=== PATIENT | female | born 1990 ===

== ENCOUNTER 2024-12-31 09:00 | Day surgery (SDC) | payer OTHER ==
[2024-12-25 09:57] VITALS: BP 115/80
[2024-12-25 10:04] LABS: BASO % 0.5 % (0.1-1.2); EOS # 0.23 (0.04-0.54); EOS % 3.6 % (0.7-7.0); LYMPH # 1.54 (1.18-3.74); LYMPH % 23.8 % (19.3-53.1); MEAN PLATELET VOLUME 9.80 fl (9.4-12.4); MONO # 0.45 (0.24-0.82); MONO % 7.0 % (4.7-12.5); NEUT # 4.21 (1.56-6.13); NEUT % 64.9 % (34.0-71.1); RED CELL DISTRIBUTION WIDTH 13.2 % (11.6-14.4)
[2024-12-25 10:10] LABS: URINE APPEARANCE Clear; URINE BILIRRUBIN Negative (NEGATIVE); URINE BLOOD Negative; URINE COLOR Yellow; URINE GLUCOSE Negative (NEGATIVE); URINE KETONE Negative (NEGATIVE); URINE LEUKOCYTE Negative; URINE NITRATE Negative; URINE PROTEIN Negative (NEGATIVE); URINE UROBILINOGEN 1.0 E.U./dl
[2024-12-25 10:13] LABS: URINE BACTERIA 160.6 uL (0.0-1933); URINE EPITHELIAL CELLS 3.3 uL (0.0-38.8); URINE WBC 6.0 uL (0.0-23.2)
[2024-12-25 10:17] LABS: URINE CAST 0.00 uL (0.0-1.40); URINE RBC 1.9 uL (0.0-20.8)
[2024-12-25 10:30] LABS: ALT/SGPT 29.0 U/L (12-78); AST/SGOT 17.0 U/L (15-37); BILIRUBIN TOTAL 0.5 mg/dL (0.3-1.2); BUN CREA RATIO 14.0 (7.0-25.0); CREATININE SERUM 0.83 mg/dL (0.55-1.02); GFR 77.78; GLOBULINA 3.7 G/DL (2.4-3.5); GLUCOSE FASTING 92.0 mg/dL (65-100); INR 0.97; OSMOLALITY SERUM 279.0 MOSM/KG (275-295)
[~2024-12-31] VITALS: Ht 162.6 cm; Wt 86.2 kg
[2024-12-31] MEDS ORDERED: POVIDONE-IODINE 118 ML BOTT TOP ONE (12:15)
[2024-12-31] MEDS ORDERED: SUGAMMADEX SODIUM 200 MG/2 ML VIAL IV ONE (14:23)
[2024-12-31] MEDS ORDERED: ONDANSETRON HCL 2 MG/ML VIAL IV PRN (14:45)
[2024-12-31] MEDS ORDERED: MORPHINE SULFATE 4 MG/ML CARTRIDGE IV PRN (14:45)
== END 2024-12-31 16:30 | disposition home or self-care (01) ==
LOC: CIR.AMB 09:00
PROVIDERS: ATTEND Student in an Organized Health Care Education/Training Program
DX: Z30.2 Encounter for sterilization (principal); Z88.0 Allergy status to penicillin; Z88.6 Allergy status to analgesic agent